=== PATIENT | female | born 1980 | race Caucasian/White ===

== ENCOUNTER → 2022-02-07 13:04 | Outpatient (BNVA) | payer MEDICAID, SELFPAY | PROVIDERS: Family Provider Nurse Practitioner; Visit Provider Family Medicine | DX: S52.501A Unspecified fracture of the lower end of right radius, initial encounter for closed fracture (principal); W19.XXXA Unspecified fall, initial encounter; M25.532 Pain in left wrist | CPT/HCPCS: 73110 ==